=== PATIENT | male | born 1960 | race Hispanic/Latino ===

== ENCOUNTER 2023-03-16 11:51 | Inpatient (IN) | payer MEDICARE, MEDICAID ==
[2023-03-16] MEDS ORDERED: Morphine 4 MG/ML VIAL ONE (14:16)
[2023-03-16] MEDS ORDERED: Ondansetron PF 4 MG/2 ML Vial ONE (14:16)
[2023-03-16] MEDS ORDERED: Acetaminophen 325 MG TAB PO PRN (20:00)
[2023-03-16] MEDS: HYDROcodone/Acetaminophen 5/325 mg Tablet PO PRN (20:58)
[2023-03-16] MEDS ORDERED: Dextrose 50% Abboject 50 ML SYRINGE SLOW IVP PRN (21:43)
[2023-03-16] MEDS ORDERED: Dextrose 5% in Water 1,000 ML IV PRN (21:43)
[2023-03-16] MEDS ORDERED: hydrOXYzine 25 MG TAB PO PRN (21:45)
[2023-03-16] MEDS ORDERED: Mirtazapine 15 MG TAB PO SCH (22:30)
[2023-03-16] MEDS ORDERED: Zolpidem Tartrate 5 MG TAB PO SCH (22:30)
[2023-03-16 22:56] VITALS: BMI 23.3
[2023-03-16] MEDS ORDERED: Sodium Chloride 0.9% 1,000 ML IV SCH (23:59)
[2023-03-17] MEDS: HYDROcodone/Acetaminophen 5/325 mg Tablet PO PRN ×3 (05:36→19:14)
[2023-03-17 07:45] LABS: Anion Gap 16 mmol/L (10-20); BUN (Urea Nitrogen) 19 mg/dL (8.4-25.7); Calc. Creatinine Clearance 16 mL/min (70-130); Calcium 7.8 mg/dL (7.8-10.44); Carbon Dioxide 23 mmol/L (23-31); Chloride 98 mmol/L (98-107); Estimated GFR 13; Glucose 138 mg/dL (80-115); Potassium 4.3 mmol/L (3.5-5.1); Sodium 133 mmol/L (136-145)
[2023-03-17] MEDS: Pantoprazole 40 MG VIAL IVP SCH (10:45)
[2023-03-17] MEDS: cefTRIAXone\\ROCEPHIN 1 GM in Sodium Chloride 0.9% 100 ML IVPB SCH (12:55)
[2023-03-17] MEDS: Mirtazapine 15 MG TAB PO SCH (20:06)
[2023-03-17] MEDS: Zolpidem Tartrate 5 MG TAB PO SCH (20:06)
[2023-03-18] MEDS: HYDROcodone/Acetaminophen 5/325 mg Tablet PO PRN ×3 (05:49→21:24)
[2023-03-18 06:43] LABS: Anion Gap 15 mmol/L (10-20); BUN (Urea Nitrogen) 25 mg/dL (8.4-25.7); Calc. Creatinine Clearance 13 mL/min (70-130); Calcium 7.9 mg/dL (7.8-10.44); Carbon Dioxide 26 mmol/L (23-31); Chloride 96 mmol/L (98-107); Estimated GFR 10; Glucose 159 mg/dL (80-115); Potassium 3.7 mmol/L (3.5-5.1); Sodium 133 mmol/L (136-145)
[2023-03-18] MEDS: Pantoprazole 40 MG VIAL IVP SCH (08:49)
[2023-03-18] MEDS: cefTRIAXone\\ROCEPHIN 1 GM in Sodium Chloride 0.9% 100 ML IVPB SCH (12:33)
[2023-03-18 15:31] LABS: HBSAg Index 0.26 S/CO (0-0.99); Hep B Core Total Ab Non-Reactive (NonReactive); Hep B Core Total Index 0.08 S/CO (0-0.79); Hep B Surf Ag Non-Reactive S/CO (NonReactive); Hep C IgG Ab Non-Reactive S/CO (NonReactive); Hep C Index 0.31 S/CO (0-0.79)
[2023-03-18 15:38] LABS: HBSAB Concentration 75.61 mIU/mL; Hep B Surf AB Reactive (NonReactive)
[2023-03-18] MEDS: Mirtazapine 15 MG TAB PO SCH (21:24)
[2023-03-18] MEDS: Zolpidem Tartrate 5 MG TAB PO SCH (21:24)
[2023-03-19 06:01] LABS: #Eosinphils 0.3 thou/uL (0.0-0.7); #Monocytes 0.5 thou/uL (0.11-0.59); #Neutrophils 2.7 thou/uL (1.40-6.50); %Basophils 0.1 % (0.0-1.0); %Eosinophils 6.1 % (0.0-10.0); %Lymphocytes 22.7 % (21.0-51.0); %Monocytes 10.8 % (0.0-10.0); %Neutrophils 60.2 % (42.0-75.0); Hemoglobin 9.4 g/dL (14.0-18.0); Mean Corpuscular HGB CONC 31.6 g/dL (32.0-36.0); Mean Corpuscular Hemoglobin 26.3 pg (27.0-31.0); Mean Corpuscular Volume 83.2 fl (78.0-98.0); Mean Platelet Volume 6.3 fL (7.4-10.4); Platelet Count 108 10x3/uL (130-400); Red Blood Cell (RBC) Count 3.57 mill/uL (4.70-6.10); White Blood Cell (WBC) Count 4.4 10x3/uL (4.8-10.8)
[2023-03-19 06:21] LABS: Albumin 2.7 g/dL (3.4-4.8); Anion Gap 14 mmol/L (10-20); BUN (Urea Nitrogen) 15 mg/dL (8.4-25.7); BUN/Creatinine Ratio 3.79; Calc. Creatinine Clearance 18 mL/min (70-130); Calcium 8.3 mg/dL (7.8-10.44); Carbon Dioxide 27 mmol/L (23-31); Chloride 99 mmol/L (98-107); Estimated GFR 16; Glucose 184 mg/dL (80-115); Phosphorus 2.8 mg/dL (2.3-4.7); Sodium 136 mmol/L (136-145)
[2023-03-19] MEDS: Pantoprazole 40 MG VIAL IVP SCH (09:06)
[2023-03-19] MEDS: HYDROcodone/Acetaminophen 5/325 mg Tablet PO PRN ×2 (09:10→20:48)
[2023-03-19 09:19] LABS: Iron 41 ug/dL (65-175); Iron Binding Capacity, Total 111 mcg/dL (261-462)
[2023-03-19] MEDS: cefTRIAXone\\ROCEPHIN 1 GM in Sodium Chloride 0.9% 100 ML IVPB SCH (12:11)
[2023-03-19] MEDS ORDERED: Iron, Sodium Ferric Gluconate 250 MG in Sodium Chloride 0.9% 250 ML 250 ML IVPB SCH (18:00)
[2023-03-19] MEDS ORDERED: EPOETIN ALFA-EPBX (ESRD) 10,000 UNITS/ML VIAL SC SCH (18:00)
[2023-03-19] MEDS: Zolpidem Tartrate 5 MG TAB PO SCH (20:47)
[2023-03-19] MEDS: Mirtazapine 15 MG TAB PO SCH (20:47)
[2023-03-20] MEDS: HYDROcodone/Acetaminophen 5/325 mg Tablet PO PRN (05:53)
[2023-03-20] MEDS: Pantoprazole 40 MG VIAL IVP SCH (09:41)
[2023-03-20] MEDS: cefTRIAXone\\ROCEPHIN 1 GM in Sodium Chloride 0.9% 100 ML IVPB SCH (15:10)
[2023-03-20] MEDS: Mirtazapine 15 MG TAB PO SCH (20:12)
[2023-03-20] MEDS ORDERED: Zolpidem Tartrate 5 MG TAB PO SCH (21:00)
[2023-03-20] MEDS ORDERED: HumaLOG 300 UNITS/3 ML VIAL SC PRN ×2 (21:40)
[2023-03-21] MEDS ORDERED: Ferrous Sulfate 325 MG TAB PO SCH (08:00)
[2023-03-21 08:55] LABS: Hemoglobin 9.7 g/dL (14.0-18.0); Mean Corpuscular HGB CONC 30.6 g/dL (32.0-36.0); Mean Corpuscular Hemoglobin 25.5 pg (27.0-31.0); Mean Corpuscular Volume 83.1 fl (78.0-98.0); Platelet Count 94 10x3/uL (130-400); RBC Distribution Width 19.2 % (11.5-14.5); Red Blood Cell (RBC) Count 3.79 mill/uL (4.70-6.10)
[2023-03-21 08:56] LABS: #Eosinphils 0.4 thou/uL (0.0-0.7); #Lymphocytes 1.4 thou/uL (1.20-3.40); #Monocytes 0.7 thou/uL (0.11-0.59); #Neutrophils 3.5 thou/uL (1.40-6.50); %Basophils 0.3 % (0.0-1.0); %Eosinophils 5.9 % (0.0-10.0); %Lymphocytes 23.4 % (21.0-51.0); %Monocytes 11.6 % (0.0-10.0); %Neutrophils 58.8 % (42.0-75.0)
[2023-03-21 09:02] VITALS: BP 148/77; TEMP 97.9
[2023-03-21 09:11] LABS: Albumin 2.9 g/dL (3.4-4.8); Anion Gap 14 mmol/L (10-20); BUN (Urea Nitrogen) 17 mg/dL (8.4-25.7); BUN/Creatinine Ratio 4.18; Calc. Creatinine Clearance 18 mL/min (70-130); Calcium 8.6 mg/dL (7.8-10.44); Carbon Dioxide 27 mmol/L (23-31); Chloride 98 mmol/L (98-107); Estimated GFR 16; Glucose 188 mg/dL (80-115); Phosphorus 2.6 mg/dL (2.3-4.7); Potassium 4.2 mmol/L (3.5-5.1); Sodium 135 mmol/L (136-145)
[2023-03-21] MEDS: Pantoprazole 40 MG VIAL IVP SCH (09:38)
[2023-03-21 09:52] LABS: Hypochromia SLIGHT = 6-15 cells (100X) (0-5/hpf); MDiff Complete? YES; Platelet Morphology Comment Appears Decreased; Polychromasia SLIGHT = 2-3 cells (100X) (0-2/hpf)
[2023-03-21] MEDS: cefTRIAXone\\ROCEPHIN 1 GM in Sodium Chloride 0.9% 100 ML IVPB SCH (13:38)
[2023-03-21] MEDS ORDERED: Aspirin 81 mg Enteric Coated Tablet PO SCH (21:00)
== END 2023-03-21 16:57 | DRG 562 ==
LOC: ERS 11:51 → SURG A 17:27
PROVIDERS: ADMIT Orthopaedic Surgery; ATTEND Orthopaedic Surgery
PROC: 2W3MX1Z Immobilization of Left Lower Extremity using Splint (ICD-10-PCS; principal; 2023-03-17)
DX: S82.852A Displaced trimalleolar fracture of left lower leg, initial encounter for closed fracture (principal); N18.6 End stage renal disease; I13.2 Hypertensive heart and chronic kidney disease with heart failure and with stage 5 chronic kidney disease, or end stage renal disease; K21.9 Gastro-esophageal reflux disease without esophagitis; G47.00 Insomnia, unspecified; F41.9 Anxiety disorder, unspecified; E10.22 Type 1 diabetes mellitus with diabetic chronic kidney disease; E10.40 Type 1 diabetes mellitus with diabetic neuropathy, unspecified; I50.9 Heart failure, unspecified; D63.1 Anemia in chronic kidney disease; D50.9 Iron deficiency anemia, unspecified; F17.210 Nicotine dependence, cigarettes, uncomplicated; Z96.641 Presence of right artificial hip joint; Z99.2 Dependence on renal dialysis; Z88.2 Allergy status to sulfonamides; Z88.5 Allergy status to narcotic agent; Z79.899 Other long term (current) drug therapy
CPT/HCPCS: 36415; 80048; 80069; 82728; 83540; 83550; 85025; 86704; 90935; 96374; 96375; C9113; G0257; J0696; J2270; J2405; J2916; J3490; J7050; Q5105